=== PATIENT | female | born 1955 | race Caucasian/White ===

== ENCOUNTER → 2024-05-14 | Outpatient (CLI) | payer MEDICARE, BC, SELFPAY ==
[2024-05-14 11:17] LABS: Basophils % (Auto) 0 % (0-2.5); Eosinophils # (Auto) 0.1 Thou/mm3 (0.0-0.5); Eosinophils % (Auto) 1 % (0-10); Hematocrit 41.9 % (36.0-46.0); Immature Granulocytes % (Auto) 0 % (0-0); Immature Granulocytes Auto 0.02 Thou/mm3 (0.00-0.00); Lymphocytes # (Auto) 2.4 Thou/mm3 (1.0-4.8); Lymphocytes % (Auto) 24 % (10-50); Mean Corpuscular HGB Conc 33.4 g/dl (31.0-37.0); Mean Corpuscular Hemoglobin 28.2 pg (25.0-35.0); Mean Corpuscular Volume 84 fL (80-100); Monocytes # (Auto) 0.8 Thou/mm3 (0.0-0.8); Monocytes % (Auto) 8 % (0-12); Neutrophils # (Auto) 6.6 Thou/mm3 (1.8-7.7); Neutrophils % (Auto) 67 % (37-80); Nucleated Red Blood Cell % 0 /100 WBC (0); Platelet Count 250 Thou/mm3 (140-440); RDW Standard Deviation 42.2 fL (36.4-46.3); Red Blood Count 4.97 Miln/mm3 (4.00-5.20); White Blood Count 9.9 Thou/mm3 (3.6-11.0)
[2024-05-14 11:26] LABS: Glucose Estimated Average 151 mg/dL (80-131); Hemoglobin A1C 6.9 % Hgb (4.8-6.0)
[2024-05-14 11:35] LABS: Alanine Aminotransferase 27 U/L (10-49); Albumin, Serum 4.4 gm/dL (3.4-4.8); Albumin/Globulin Ratio 1.9 (1.2-2.2); Alkaline Phosphatase 79 U/L (46-116); Anion Gap 12 (7-16); Aspartate Amino Transferase 24 U/L (0-34); BUN/Creatinine Ratio 21 Ratio (12-20); Bilirubin,Direct 0.2 mg/dL (0.0-0.3); Bilirubin,Total 0.6 mg/dL (0.3-1.2); Blood Urea Nitrogen 15 mg/dL (9-23); Carbon Dioxide 29.2 mMol/L (20.0-31.0); Cardiac Risk Estimate 2.5 RATIO (3.7-5.6); Chloride 100 mMol/L (98-107); Cholesterol 118 mg/dL (132-200); Creatinine (Component) 0.7 mg/dL (0.6-1.3); Free T4 (Free Thyroxine) 1.51 ng/dL (0.89-1.76); Globulin 2.3 gm/dL (2.3-3.5); Glucose 119 mg/dL (74-106); HDL Cholesterol 47 mg/dL (40-60); LDL Cholesterol,Calculated 46 mg/dL (0-130); Osmolality,Calculated 283 (275-295); Potassium 4.2 mMol/L (3.4-5.1); Sodium 141 mMol/L (136-145); Thyroid Stimulating Hormone 0.53 uIU/mL (0.55-4.78); Total Protein 6.7 gm/dL (5.7-8.2); Triglycerides 127 mg/dL (30-150); eGFR > 60 See Note
== END | disposition home or self-care (01) ==
PROVIDERS: PCP Family Medicine; Referring Provider Internal Medicine Cardiovascular Disease; Visit Provider Internal Medicine Cardiovascular Disease
DX: I10 Essential (primary) hypertension (principal); I25.118 Atherosclerotic heart disease of native coronary artery with other forms of angina pectoris; E78.2 Mixed hyperlipidemia; E11.65 Type 2 diabetes mellitus with hyperglycemia
CPT/HCPCS: 36415; 80048; 80053; 80061; 80076; 82248; 83036; 84439; 84443; 85025

== ENCOUNTER → 2024-08-09 | Outpatient (CLI) | payer MEDICARE, BC, SELFPAY ==
[2024-08-09 14:32] LABS: Glucose Estimated Average 128 mg/dL (80-131); Hemoglobin A1C 6.1 % Hgb (4.8-6.0)
== END | disposition home or self-care (01) ==
PROVIDERS: PCP Family Medicine; Referring Provider Family Medicine; Visit Provider Family Medicine
DX: E11.9 Type 2 diabetes mellitus without complications (principal)
CPT/HCPCS: 36415; 83036

== ENCOUNTER → 2024-12-20 | Outpatient (CLI) | payer MEDICARE, BC, SELFPAY ==
[2024-12-20 11:15] LABS: Basophils # (Auto) 0.0 Thou/mm3 (0.0-0.2); Basophils % (Auto) 0 % (0-2.5); Eosinophils # (Auto) 0.1 Thou/mm3 (0.0-0.5); Eosinophils % (Auto) 1 % (0-10); Hematocrit 45.0 % (36.0-46.0); Hemoglobin 14.6 g/dL (12.0-16.0); Immature Granulocytes Auto 0.03 Thou/mm3 (0.00-0.00); Lymphocytes # (Auto) 1.8 Thou/mm3 (1.0-4.8); Lymphocytes % (Auto) 20 % (10-50); Mean Corpuscular HGB Conc 32.4 g/dl (31.0-37.0); Mean Corpuscular Hemoglobin 28.5 pg (25.0-35.0); Mean Corpuscular Volume 88 fL (80-100); Monocytes # (Auto) 0.5 Thou/mm3 (0.0-0.8); Monocytes % (Auto) 6 % (0-12); Neutrophils # (Auto) 6.5 Thou/mm3 (1.8-7.7); Neutrophils % (Auto) 72 % (37-80); Nucleated Red Blood Cell # 0.00 Thou/mm3 (0.00-0.00); Nucleated Red Blood Cell % 0 /100 WBC (0); Platelet Count 221 Thou/mm3 (140-440); RDW Standard Deviation 43.3 fL (36.4-46.3); Red Blood Count 5.13 Miln/mm3 (4.00-5.20); White Blood Count 9.0 Thou/mm3 (3.6-11.0)
[2024-12-20 11:25] LABS: Glucose Estimated Average 194 mg/dL (80-131); Hemoglobin A1C 8.4 % Hgb (4.8-6.0)
[2024-12-20 11:34] LABS: Alanine Aminotransferase 52 U/L (10-49); Albumin, Serum 4.8 gm/dL (3.4-4.8); Albumin/Globulin Ratio 1.8 (1.2-2.2); Alkaline Phosphatase 115 U/L (46-116); Anion Gap 10 (7-16); Aspartate Amino Transferase 38 U/L (0-34); BUN/Creatinine Ratio 18 Ratio (12-20); Bilirubin,Total 0.7 mg/dL (0.3-1.2); Blood Urea Nitrogen 14 mg/dL (9-23); Calcium 10.9 mg/dL (8.3-10.6); Calcium (Corrected) 10.9 mg/dL (8.5-10.1); Carbon Dioxide 26.6 mMol/L (20.0-31.0); Cardiac Risk Estimate 2.5 RATIO (3.7-5.6); Chloride 100 mMol/L (98-107); Cholesterol 173 mg/dL (132-200); Creatinine (Component) 0.8 mg/dL (0.6-1.3); Globulin 2.6 gm/dL (2.3-3.5); Glucose 149 mg/dL (74-106); HDL Cholesterol 70 mg/dL (40-60); LDL Cholesterol,Calculated 70 mg/dL (0-130); Osmolality,Calculated 277 (275-295); Potassium 4.9 mMol/L (3.4-5.1); Sodium 137 mMol/L (136-145); Total Protein 7.4 gm/dL (5.7-8.2); Triglycerides 164 mg/dL (30-150); eGFR > 60 See Note
== END | disposition home or self-care (01) ==
PROVIDERS: PCP Family Medicine; Referring Provider Internal Medicine Cardiovascular Disease; Visit Provider Family Medicine
DX: I10 Essential (primary) hypertension (principal); E11.9 Type 2 diabetes mellitus without complications
CPT/HCPCS: 36415; 80053; 80061; 83036; 85025

== ENCOUNTER → 2025-02-14 | Outpatient (CLI) | payer MEDICARE, BC, SELFPAY ==
[2025-02-14 16:14] LABS: Glucose Estimated Average 192 mg/dL (80-131); Hemoglobin A1C 8.3 % Hgb (4.8-6.0)
== END | disposition home or self-care (01) ==
LOC: COPL 15:12
PROVIDERS: PCP Family Medicine; Referring Provider Family Medicine; Visit Provider Family Medicine
DX: E11.65 Type 2 diabetes mellitus with hyperglycemia (principal)
CPT/HCPCS: 36415; 83036

== ENCOUNTER → 2025-02-22 | Outpatient (CLI) | payer MEDICARE, BC, SELFPAY ==
--- NOTE | 2025-02-22 13:30 | XR_ITS ---
Examination: Screening digital mammography, bilateral Computer aided detection 3-D breast Tomosynthesis, bilateral Date and time of exam: February 22, 2025 1327 hours, compared to mammograms dating to April 19, 2016 Indication: Screening Technique: Nonmagnified MLO, CC views of the breasts to been obtained, reconstructed from 3-D Tomosynthesis images. R2 computer aided detection program utilized for evaluation of suspicious masses and/or abnormal calcifications. 3-D Tomosynthesis images obtained. Findings: Scattered areas of fibroglandular density. Benign calcifications No interval suspicious masses Impression: BI-RADS category II: Benign Findings. Recommend 1 year follow-up mammogram.
== END | disposition home or self-care (01) ==
LOC: CDIM 13:18
PROVIDERS: Referring Provider Family Medicine; Visit Provider Family Medicine
DX: Z12.31 Encounter for screening mammogram for malignant neoplasm of breast (principal); R92.323 Mammographic fibroglandular density, bilateral breasts; R92.1 Mammographic calcification found on diagnostic imaging of breast
CPT/HCPCS: 77063; 77067